=== PATIENT | female | born 1985 | race Caucasian/White ===

== ENCOUNTER 2018-08-15 23:45 | Emergency (ER) | payer OTHER ==
[2018-08-16] MEDS ORDERED: DIPH,PERTUS(ACELL)TETVAC-LF 0.5 ML VIAL IM ONE (03:10)
--- NOTE | 2018-08-16 05:26 | ED ---
Psych HPI <Ray Larson P - Last Filed: 08/16/18 05:28> - General Source: patient Mode of arrival: ambulatory - History of Present Illness MD Complaint: suicidal ideation, feels depressed -: days(s) Associated Psychiatric Symptoms: depression, suicidal ideation History of same: Yes Quality: constant Improves With: none Worsens With: none <Narendra Morales - Last Filed: 08/16/18 07:37> - General Chief Complaint: Psychiatric Symptoms Stated Complaint: MENTAL HEALTH Time Seen by Provider: 08/16/18 00:55 - History of Present Illness Initial Comments: This patient is 32-year-old woman presenting to have psychiatric evaluation for depression, she also had some suicidal ideation and inflicted a laceration to her left forearm. She does not recall when her last tetanus shot was. (Narendra Morales) - Related Data Home Medications Medication Instructions Recorded Confirmed No Known Home Medications 08/16/18 08/16/18 Allergies Allergy/AdvReac Type Severity Reaction Status Date / Time No Known Allergies Allergy Verified 08/16/18 00:17 Review of Systems ROS Other: All systems not noted in ROS Statement are negative. <Ray Larson P - Last Filed: 08/16/18 05:28> ROS Other: All systems not noted in ROS Statement are negative. Constitutional: Denies: fever, chills Respiratory: Denies: cough, dyspnea Cardiovascular: Denies: chest pain, palpitations Gastrointestinal: Denies: abdominal pain, nausea, vomiting Musculoskeletal: Denies: back pain Skin: Denies: rash Neurological: Denies: headache, weakness, numbness, paresthesias Psychiatric: Reports: depression, suicidal thoughts. Denies: auditory hallucinations, visual hallucinations, homicidal thoughts Hematological/Lymphatic: Denies: easy bleeding <Narendra Morales - Last Filed: 08/16/18 07:37> ROS Statement: Those systems with pertinent positive or pertinent negative responses have been documented in the HPI. Past Medical History Additional Past Medical History / Comment(s): migraines History of Any Multi-Drug Resistant Organisms: None Reported Past Surgical History: Section Past Psychological History: Depression Smoking Status: Current every day smoker Past Alcohol Use History: None Reported Past Drug Use History: None Reported <Narendra Morales - Last Filed: 08/16/18 07:37> General Exam Limitations: no limitations General appearance: alert, in no apparent distress Head exam: Present: atraumatic, normocephalic Eye exam: Present: normal appearance Respiratory exam: Present: normal lung sounds bilaterally. Absent: respiratory distress, wheezes, rales, rhonchi, stridor Cardiovascular Exam: Present: regular rate, normal rhythm, normal heart sounds. Absent: systolic murmur, diastolic murmur, rubs, gallop GI/Abdominal exam: Present: soft. Absent: tenderness Extremities exam: Present: normal capillary refill, other (Approximately 3 cm laceration to the volar aspect left forearm. No injury to the deep tissues). Absent: tenderness Neurological exam: Present: alert, oriented X3. Absent: motor sensory deficit Skin exam: Present: warm, dry, normal color. Absent: intact (Laceration as above), rash <Narendra Morales - Last Filed: 08/16/18 07:37> Vital Signs 08/16/18 08/16/18 00:11 05:28 Temperature 97.9 F Pulse Rate 52 L 78 Respiratory 20 16 Rate Blood Pressure 103/69 92/55 O2 Sat by Pulse 96 98 Oximetry Procedures - Laceration Laceration #1 Consent Obtained: verbal consent Indication: laceration Site: other (Ventral forearm) Size (cm): 3 Description: linear Depth: simple, single layer Anesthetic Used: lidocaine 1% Anesthesia Technique: local infiltration Amount (mls): 1 Pre-repair: wound explored, irrigated extensively (With saline pressure irrigation) Type of Sutures: other (ethilon) Size of Sutures: 5-0 Number of Sutures: 6 Technique: simple, interrupted Patient Tolerated Procedure: well, no complications <Ray Larson - Last Filed: 08/16/18 05:28> Disposition <Ray Larson - Last Filed: 08/16/18 05:28> Is patient prescribed a controlled substance at d/c from ED?: No <Narendra Morales - Last Filed: 08/16/18 07:37> Clinical Impression: Mood disorder, Laceration Disposition: HOME SELF-CARE Condition: Good Instructions: Mood Disorders (ED) Referrals: Jada Dahl MD [Primary Care Provider] - 1-2 days
[2018-08-16 05:29] VITALS: PULSE 78
[2018-08-16 09:47] VITALS: BP 118/70; RESP 18; TEMP 98
== END 2018-08-16 09:15 | disposition home or self-care (01) ==
LOC: EC 23:45
DX: S51.812A Laceration without foreign body of left forearm, initial encounter (principal); F32.9 Major depressive disorder, single episode, unspecified; R45.851 Suicidal ideations; F17.200 Nicotine dependence, unspecified, uncomplicated; Z23 Encounter for immunization; X78.9XXA Intentional self-harm by unspecified sharp object, initial encounter
CPT/HCPCS: 12002; 90471; 90715; 99284

== ENCOUNTER → 2020-04-14 | Outpatient (CLI) | payer OTHER ==
--- NOTE | 2020-04-14 14:44 | CT ---
EXAMINATION TYPE: CT abdomen pelvis w con DATE OF EXAM: 04/14/2020 COMPARISON: None HISTORY: Weight loss CT DLP: 594 mGycm CONTRAST: CT scan of the abdomen and pelvis is performed with Oral Contrast and with IV Contrast, patient injec talon with 100 mL of Isovue 300. FINDINGS: LUNG BASES-: No visible nodule. No infiltrate. LIVER/GB: Small gallstones identified. No space occupying hepatic lesion. Biliary tree is of kaitlynn l caliber. PANCREAS: No inflammation. No distinct mass. SPLEEN: No splenic enlargement. No lesion seen. ADRENALS: No nodule. No thickening. KIDNEYS/BLADDER: No hydronephrosis. No nephrolithiasis. No distinct renal mass. Urinary bladder g rossly unremarkable. BOWEL: Normal appendix. Normal bowel caliber. No inflammation. Moderate fecal stasis noted. GENITAL ORGANS: Right ovarian cyst measuring 1.5 cm. LYMPH NODES: No greater than 1cm abdominal or pelvic lymph nodes are appreciated. AORTA: No significant abnormality. OSSEOUS STRUCTURES: No significant abnormality is seen. OTHER: No significant additional abnormality is seen. IMPRESSION: 1. No significant abnormality to account for the patient's symptoms. Moderate fecal stasis identified . Small gallstones noted. Right ovarian cyst.
--- NOTE | 2020-04-15 04:05 | CT ---
EXAMINATION TYPE: CT cervical spine wo con DATE OF EXAM: 04/14/2020 COMPARISON: None HISTORY: 34-year-old female Bronchitis, not specified as acute or chronic, weight loss. TECHNIQUE: Contiguous axial scanning of the cervical spine without IV contrast. Coronal and sagittal reconstructions performed. CT DLP: 314 mGycm Automated exposure control for dose reduction was used. FINDINGS: No craniocervical junction abnormality, predental space widening, or prevertebral soft tissue swellin g. Alignment of the cervical spine is maintained though there is straightening of the normal cervical lo rdosis. Minimal posterior disc bulge at C5-C6. By CT, no evident spinal canal stenosis. No neuroforaminal stenosis is seen. Mild emphysematous change in the visualized upper lungs. IMPRESSION: 1. MINIMAL POSTERIOR DISC BULGE AT C5-C6. 2. STRAIGHTENING OF THE NORMAL CERVICAL LORDOSIS COULD BE POSITIONAL OR DUE TO MUSCLE SPASM. 3. COPD WITH MILD EMPHYSEMA IN THE UPPER LUNGS.
== END | disposition home or self-care (01) ==
LOC: RADCTMAIN 12:12
PROVIDERS: ATTEND Family Medicine
DX: K80.20 Calculus of gallbladder without cholecystitis without obstruction (principal); N83.201 Unspecified ovarian cyst, right side; M50.222 Other cervical disc displacement at C5-C6 level; J43.9 Emphysema, unspecified; R63.4 Abnormal weight loss; F10.20 Alcohol dependence, uncomplicated; R63.0 Anorexia
CPT/HCPCS: 72125; 74177; Q9967

== ENCOUNTER → 2020-05-13 | Outpatient (CLI) | payer OTHER ==
--- NOTE | 2020-05-13 07:56 | CT ---
EXAMINATION TYPE: CT chest wo con DATE OF EXAM: 05/13/2020 COMPARISON: Cough, bronchitis HISTORY: Bronchitis, weight loss CT DLP: 112.3 mGycm. Automated Exposure Control for Dose Reduction was Utilized. TECHNIQUE: CT scan of the thorax is performed without IV contrast. FINDINGS: LUNGS: The lungs are grossly clear. There are 3 mm nodules in the right apex. Within the superior s egment of the right lower lobe there are additional 3 mm less pulmonary nodules. There are well-circu mscribed. Diffuse emphysematous changes are seen compatible with chronic obstructive pulmonary diseas e. Vague subsegmental areas of consolidation are most typical of atelectasis. There is no pleural eff usion or pneumothorax seen. The tracheobronchial tree is patent. MEDIASTINUM: Lack of IV contrast is noted to limit evaluation for mediastinal and especially hilar ad enopathy. There are no definitive greater than 1 cm hilar or mediastinal lymph nodes. No cardiomega ly or pericardial effusion is seen. OTHER: Correlate for cholelithiasis. Mild hypertrophic change of the vertebral column. Calcification involving the right kidney measures 1 mm with no hydronephrosis. IMPRESSION: 1. No evidence of consolidative pneumonia. Subsegmental groundglass changes are most typical of atele ctasis. 2. There are multiple small less than 5 mm pulmonary nodules right apex too small to characterize. 6 month follow-up is recommended to confirm stability. 3. COPD
== END | disposition home or self-care (01) ==
LOC: RADCTMAIN 06:42
PROVIDERS: ATTEND Family Medicine
DX: J98.11 Atelectasis (principal); R91.8 Other nonspecific abnormal finding of lung field; J44.9 Chronic obstructive pulmonary disease, unspecified; R63.4 Abnormal weight loss
CPT/HCPCS: 71250

== ENCOUNTER 2020-07-10 18:40 | Emergency (ER) | payer OTHER ==
[2020-07-10 18:45] VITALS: RESP 16
[2020-07-10] MEDS ORDERED: SODIUM CHLORIDE 0.9% 1,000 ML IV ONE (19:20)
[2020-07-10 19:52] LABS: ALT 22 U/L (4-34); AST 65 U/L (14-36); African American GFR (CKD) >90 (>60 ml/min/1.73 sqM); Albumin 4.3 g/dL (3.5-5.0); Alkaline Phosphatase 72 U/L (38-126); Anion Gap 7 mmol/L; Blood Urea Nitrogen 6 mg/dL (7-17); Calcium 9.3 mg/dL (8.4-10.2); Carbon Dioxide 24 mmol/L (22-30); Chloride 107 mmol/L (98-107); Glucose 86 mg/dL (74-99); Non-African American GFR(CKD) >90 (>60 ml/min/1.73 sqM); Sodium 138 mmol/L (137-145); Total Protein 8.8 g/dL (6.3-8.2)
[2020-07-10 19:58] LABS: HCT 36.4 % (34.0-46.0); HGB 11.5 gm/dL (11.4-16.0); Hypochromasia Slight; MCH 30.7 pg (25.0-35.0); MCHC 31.5 g/dL (31.0-37.0); MCV 97.5 fL (80.0-100.0); Mean Platelet Volume 7.5; Potassium 5.4 mmol/L (3.5-5.1); RBC 3.73 m/uL (3.80-5.40); RDW 14.2 % (11.5-15.5); WBC 6.8 k/uL (3.8-10.6)
[2020-07-10 20:09] LABS: HCG,Quantitative Serum 1013.2 mIU/mL
--- NOTE | 2020-07-10 20:27 | US ---
EXAMINATION TYPE: Transabdominal DATE OF EXAM: 07/10/2020 8:13 PM COMPARISON: NONE CLINICAL HISTORY: pain. Pt states light vaginal bleeding EXAM PERFORMED: Transabdominal (TA) EXAM MEASUREMENTS: GESTATIONAL AGE / DATING Physician Established: Not yet established Dates by LMP: (11 weeks/2 days) EDC: 01/27/2021 Dates by First Scan: No prior Dates by Current Scan for: No IUP seen at this time MATERNAL ANATOMY Uterus: 8.6 x 4.0 x 6.6 cm Right Ovary: 2.2 x 2.3 x 1.4 cm Left Ovary: 2.6 x 2.5 x 1.7 cm Post CDS / Adnexa: wnl, prominent vessels within adnexa and posterior cul de sac Presence of free fluid: No Presence of corpus luteal cyst: No GESTATION / SURVEY IUP: No IUP seen at this time, Endo thickened and heterogeneous= 2.3 cm with some increased vascular ity suggesting incomplete Date of LMP: 04/22/2020 Beta HcG (if available): Not available at this time IMPRESSION: There is mixed complex density in the endometrial cavity consistent with proximal of conception and i ncomplete .
[2020-07-10 20:29] LABS: Appearance,Urine Clear (Clear); Bacteria,Urine Rare /hpf; Bilirubin,Urine Negative (Negative); Blood,Urine Small (Negative); Color,Urine Light Yellow; Glucose,Urine (UA) Negative (Negative); Ketones,Urine Negative (Negative); Leukocyte Esterase,Urine Moderate (Negative); Nitrite,Urine Negative (Negative); PH, Urine 6.5 (5.0-8.0); Protein,Urine Negative (Negative); RBC,Urine 2 /hpf (0-5); Specific Gravity,Urine 1.003 (1.001-1.035); Squamous Epithelial Cell,Urine 4 /hpf (0-4); Urobilinogen,Urine <2.0 mg/dL (<2.0); WBC,Urine 25 /hpf (0-5)
[2020-07-10 20:43] LABS: Eosinophils # (M) 0.34 k/uL (0-0.7); Lymphocytes # (M) 2.04 k/uL (1.0-4.8); Monocytes # (M) 0.41 k/uL (0-1.0); Neutrophils # (M) 4.01 k/uL (1.3-7.7); Neutrophils % (M) 59 %; Nucleated Red Blood Cells 0 /100 WBC (0-0); Total Cells Counted 100
[2020-07-10 20:44] LABS: Platelet Count 346 k/uL (150-450)
--- NOTE | 2020-07-10 21:28 | ED ---
General Adult HPI - General Chief complaint: Vaginal Bleeding Stated complaint: 10 WEEKS PREG/VAG BLEEDING Time Seen by Provider: 07/10/20 19:20 Source: patient, RN notes reviewed Mode of arrival: ambulatory Limitations: no limitations - History of Present Illness Initial comments: Patient is a 34-year-old female currently presenting to the emergency room for vaginal bleeding. Patient reports that she has had some vaginal bleeding throughout the day. Patient is currently 10 weeks . Patient did have a confirmed intrauterine about 6 weeks ago. Patient was able to show me the picture of this ultrasound. Patient states only light bleeding. Denies any abdominal pain. Patient sees an BANK ACCOUNTANT through [facility].Patient has no other complaints at this time including shortness of breath, chest pain, abdominal pain, nausea or vomiting, headache, or visual changes. - Related Data Home Medications Medication Instructions Recorded Confirmed No Known Home Medications 08/16/18 08/16/18 Allergies Allergy/AdvReac Type Severity Reaction Status Date / Time morphine Allergy Rash/Hives Verified 07/10/20 18:42 Review of Systems ROS Statement: Those systems with pertinent positive or pertinent negative responses have been documented in the HPI. ROS Other: All systems not noted in ROS Statement are negative. Past Medical History Additional Past Medical History / Comment(s): migraines History of Any Multi-Drug Resistant Organisms: None Reported Past Surgical History: Section Additional Past Surgical History / Comment(s): D&C Past Psychological History: Depression Smoking Status: Current every day smoker Past Alcohol Use History: None Reported Past Drug Use History: None Reported General Exam Limitations: no limitations General appearance: alert, in no apparent distress Head exam: Present: atraumatic, normocephalic, normal inspection Eye exam: Present: normal appearance, PERRL, EOMI. Absent: scleral icterus, conjunctival injection, periorbital swelling ENT exam: Present: normal exam, mucous membranes moist Neck exam: Present: normal inspection, full ROM. Absent: tenderness, meningismus, lymphadenopathy Respiratory exam: Present: normal lung sounds bilaterally. Absent: respiratory distress, wheezes, rales, rhonchi, stridor Cardiovascular Exam: Present: regular rate, normal rhythm, normal heart sounds. Absent: systolic murmur, diastolic murmur, rubs, gallop, clicks GI/Abdominal exam: Present: soft, normal bowel sounds. Absent: distended, tenderness, guarding, rebound, rigid External exam: Absent: other (Patient refused pelvic exam.) Course Vital Signs 07/10/20 07/10/20 18:42 21:00 Temperature 97.5 F L 98.0 F Pulse Rate 72 85 Respiratory 16 16 Rate Blood Pressure 103/67 110/75 O2 Sat by Pulse 100 98 Oximetry Medical Decision Making - Medical Decision Making Vitals are stable. CBC is unremarkable. Potassium is hemolyzed at 5.4. U rinalysis does show 25 white blood cells however patient denies any dysuria or suprapubic pain. Blood type is O+. Patient refused pelvic exam. Ultrasound was performed which showed mixed Density in the endometrial cavity consistent with products of conception and incomplete . Patient is very upset and is requesting immediate discharge. I did report that she needs to follow up with her BANK ACCOUNTANT on Monday and she is agreeable to this. I did also recommend that she repeat her hCG on Monday, prescription is given.. Urine culture is pending.I discussed this case with attending Dr. Arriaga who agrees with this assessment and treatment plan. - Lab Data Result diagrams: 07/10/20 19:36 07/10/20 19:36 Lab Results 07/10/20 07/10/20 07/10/20 Range/Units 19:36 19:36 19:36 WBC 6.8 (3.8-10.6) k/uL RBC 3.73 L (3.80-5.40) m/uL Hgb 11.5 (11.4-16.0) gm/dL Hct 36.4 (34.0-46.0) % MCV 97.5 (80.0-100.0) fL MCH 30.7 (25.0-35.0) pg MCHC 31.5 (31.0-37.0) g/dL RDW 14.2 (11.5-15.5) % Plt Count 346 (150-450) k/uL Neutrophils % Not Reportable Neutrophils % (Manual) 59 % Lymphocytes % Not Reportable Lymphocytes % (Manual) 30 % Monocytes % Not Reportable Monocytes % (Manual) 6 % Eosinophils % Not Reportable Eosinophils % (Manual) 5 % Basophils % Not Reportable Neutrophils # Not Reportable Neutrophils # (Manual) 4.01 (1.3-7.7) k/uL Lymphocytes # Not Reportable Lymphocytes # (Manual) 2.04 (1.0-4.8) k/uL Monocytes # Not Reportable Monocytes # (Manual) 0.41 (0-1.0) k/uL Eosinophils # Not Reportable Eosinophils # (Manual) 0.34 (0-0.7) k/uL Basophils # Not Reportable Nucleated RBCs 0 (0-0) /100 WBC Manual Slide Review Performed Hypochromasia Slight Sodium 138 (137-145) mmol/L Potassium 5.4 H (3.5-5.1) mmol/L Chloride 107 (98-107) mmol/L Carbon Dioxide 24 (22-30) mmol/L Anion Gap 7 mmol/L BUN 6 L (7-17) mg/dL Creatinine 0.42 L (0.52-1.04) mg/dL Est GFR (CKD-EPI)AfAm >90 (>60 ml/min/1.73 sqM) Est GFR (CKD-EPI)NonAf >90 (>60 ml/min/1.73 sqM) Glucose 86 (74-99) mg/dL Calcium 9.3 (8.4-10.2) mg/dL Total Bilirubin 1.0 (0.2-1.3) mg/dL AST 65 H (14-36) U/L ALT 22 (4-34) U/L Alkaline Phosphatase 72 (38-126) U/L Total Protein 8.8 H (6.3-8.2) g/dL Albumin 4.3 (3.5-5.0) g/dL HCG, Quant 1013.2 mIU/mL Urine Color Urine Appearance (Clear) Urine pH (5.0-8.0) Ur Specific [place] (1.001-1.035) Urine Protein (Negative) Urine Glucose (UA) (Negative) Urine Ketones (Negative) Urine Blood (Negative) Urine Nitrite (Negative) Urine Bilirubin (Negative) Urine Urobilinogen (<2.0) mg/dL Ur Leukocyte Esterase (Negative) Urine RBC (0-5) /hpf Urine WBC (0-5) /hpf Ur Squamous Epith Cells (0-4) /hpf Urine Bacteria (None) /hpf Blood Type O Positive Blood Type Recheck No Previous Record Bld Type Recheck Status [facility] ONLY 07/10/20 Range/Units 19:45 WBC (3.8-10.6) k/uL RBC (3.80-5.40) m/uL Hgb (11.4-16.0) gm/dL Hct (34.0-46.0) % MCV (80.0-100.0) fL MCH (25.0-35.0) pg MCHC (31.0-37.0) g/dL RDW (11.5-15.5) % Plt Count (150-450) k/uL Neutrophils % Neutrophils % (Manual) % Lymphocytes % Lymphocytes % (Manual) % Monocytes % Monocytes % (Manual) % Eosinophils % Eosinophils % (Manual) % Basophils % Neutrophils # Neutrophils # (Manual) (1.3-7.7) k/uL Lymphocytes # Lymphocytes # (Manual) (1.0-4.8) k/uL Monocytes # Monocytes # (Manual) (0-1.0) k/uL Eosinophils # Eosinophils # (Manual) (0-0.7) k/uL Basophils # Nucleated RBCs (0-0) /100 WBC Manual Slide Review Hypochromasia Sodium (137-145) mmol/L Potassium (3.5-5.1) mmol/L Chloride (98-107) mmol/L Carbon Dioxide (22-30) mmol/L Anion Gap mmol/L BUN (7-17) mg/dL Creatinine (0.52-1.04) mg/dL Est GFR (CKD-EPI)AfAm (>60 ml/min/1.73 sqM) Est GFR (CKD-EPI)NonAf (>60 ml/min/1.73 sqM) Glucose (74-99) mg/dL Calcium (8.4-10.2) mg/dL Total Bilirubin (0.2-1.3) mg/dL AST (14-36) U/L ALT (4-34) U/L Alkaline Phosphatase (38-126) U/L Total Protein (6.3-8.2) g/dL Albumin (3.5-5.0) g/dL HCG, Quant mIU/mL Urine Color Light Yellow Urine Appearance Clear (Clear) Urine pH 6.5 (5.0-8.0) Ur Specific [place] 1.003 (1.001-1.035) Urine Protein Negative (Negative) Urine Glucose (UA) Negative (Negative) Urine Ketones Negative (Negative) Urine Blood Small H (Negative) Urine Nitrite Negative (Negative) Urine Bilirubin Negative (Negative) Urine Urobilinogen <2.0 (<2.0) mg/dL Ur Leukocyte Esterase Moderate H (Negative) Urine RBC 2 (0-5) /hpf Urine WBC 25 H (0-5) /hpf Ur Squamous Epith Cells 4 (0-4) /hpf Urine Bacteria Rare H (None) /hpf Blood Type Blood Type Recheck Bld Type Recheck Status Disposition Clinical Impression: Miscarriage, Vaginal bleeding Disposition: HOME SELF-CARE Condition: Good Instructions (If sedation given, give patient instructions): Miscarriage (ED) Additional Instructions: repeat blood work on Monday. Follow-up with your BANK ACCOUNTANT by calling Monday for an appointment. If you have any worsening symptoms such as increased bleeding, abdominal pain, fevers he needs to return to the emergency room. Is patient prescribed a controlled substance at d/c from ED?: No Referrals: Moira Mix MD [Primary Care Provider] - 1-2 days Time of Disposition: 21:27
[2020-07-10 21:35] VITALS: BP 110/75; PULSE 85; TEMP 98
== END 2020-07-10 21:36 | disposition home or self-care (01) ==
LOC: EC 18:40
DX: O03.4 Incomplete spontaneous abortion without complication (principal); F17.200 Nicotine dependence, unspecified, uncomplicated; Z88.5 Allergy status to narcotic agent
CPT/HCPCS: 36415; 76801; 80053; 81001; 84702; 85025; 86900; 86901; 87086; 96360; 99284

== ENCOUNTER 2020-07-13 12:51 | Emergency (ER) | payer OTHER ==
[2020-07-13 13:08] VITALS: TEMP 98.7
[2020-07-13 14:18] LABS: Appearance,Urine Clear (Clear); Bilirubin,Urine Negative (Negative); Blood,Urine Large (Negative); Color,Urine Light Red; Glucose,Urine (UA) Negative (Negative); Ketones,Urine Negative (Negative); Leukocyte Esterase,Urine Moderate (Negative); Mucus,Urine Rare /hpf; Nitrite,Urine Negative (Negative); PH, Urine 6.5 (5.0-8.0); Protein,Urine Trace (Negative); RBC,Urine >182 /hpf (0-5); Specific Gravity,Urine 1.019 (1.001-1.035); Squamous Epithelial Cell,Urine 1 /hpf (0-4); Urobilinogen,Urine <2.0 mg/dL (<2.0); WBC,Urine 30 /hpf (0-5)
--- NOTE | 2020-07-13 14:45 | US ---
EXAMINATION TYPE: Transabdominal DATE OF EXAM: 07/13/2020 2:04 PM COMPARISON: Radius exam 07/10/2020 CLINICAL HISTORY: vaginal bleeding/miscarriage. spotting for 3 days, heavy bleeding today EXAM PERFORMED: Transabdominal (TA) EXAM MEASUREMENTS: GESTATIONAL AGE / DATING Physician Established: Not yet established Dates by LMP: (11 weeks/5 days) EDC: 01/27/21 Dates by First Scan: no IUP visualized on prior exam Dates by Current Scan for: No IUP seen at this time MATERNAL ANATOMY Uterus: 8.0 x 4.5 x 5.5cm Right Ovary: 2.0 x 1.1 x 2.2cm Left Ovary: 2.6 x 1.6 x 1.9cm Post CDS / Adnexa: prominent vessels noted Presence of free fluid: no Presence of corpus luteal cyst: no GESTATION / SURVEY IUP: No IUP seen at this time, thickened and heterogeneous endometrium = 2.6cm with increased vascul arity Date of LMP: 04/22/20 Beta HcG (if available): Not available at this time IMPRESSION: There is no intrauterine . Endometrial stripe is thickened and indeterminate, consider [employer] c onsult.
--- NOTE | 2020-07-13 14:47 | ED ---
Female Urogenital HPI - General Chief complaint: Vaginal Bleeding Stated complaint: recheck - 10wks preg bleeding Time Seen by Provider: 07/13/20 13:12 Source: patient, RN notes reviewed, old records reviewed Mode of arrival: ambulatory Limitations: no limitations - History of Present Illness Initial comments: This is a 34-year-old female DF for evaluation presents today for evaluation regards to vaginal bleeding 10 weeks of . Patient has no abdominal pain. Patient states her pain has been decreasing sent in from the ER for continued bleeding. Patient has no active bleeding here in the ER which she believes she may have passed tissue on arrival to the ER which she hasn't the bathroom. Otherwise besides being mildly emotional patient has no complaints MD Complaint: vaginal bleeding -: days(s) Location: suprapubic Radiation: non-radiating Severity: moderate Severity scale (1-10): 4 Consistency: constant Improves with: none Worsens with: none Patient : Yes (Active miscarriage) Associated Symptoms: vaginal bleeding - Related Data Sexually active: No Home Medications Medication Instructions Recorded Confirmed No Known Home Medications 08/16/18 08/16/18 Allergies Allergy/AdvReac Type Severity Reaction Status Date / Time morphine Allergy Rash/Hives Verified 07/13/20 13:08 Review of Systems ROS Statement: Those systems with pertinent positive or pertinent negative responses have been documented in the HPI. ROS Other: All systems not noted in ROS Statement are negative. Past Medical History Past Medical History: No Reported History Additional Past Medical History / Comment(s): migraines History of Any Multi-Drug Resistant Organisms: None Reported Past Surgical History: Section Additional Past Surgical History / Comment(s): D&C Past Psychological History: Depression Smoking Status: Current every day smoker Past Alcohol Use History: None Reported Past Drug Use History: None Reported General Exam Limitations: no limitations General appearance: alert, in no apparent distress, anxious Head exam: Present: atraumatic, normocephalic, normal inspection Eye exam: Present: normal appearance, PERRL, EOMI. Absent: scleral icterus, conjunctival injection, periorbital swelling ENT exam: Present: normal exam, mucous membranes moist Neck exam: Present: normal inspection. Absent: tenderness, meningismus, lymphadenopathy Respiratory exam: Present: normal lung sounds bilaterally. Absent: respiratory distress, wheezes, rales, rhonchi, stridor Cardiovascular Exam: Present: regular rate, normal rhythm, normal heart sounds. Absent: systolic murmur, diastolic murmur, rubs, gallop, clicks GI/Abdominal exam: Present: soft, normal bowel sounds. Absent: distended, tenderness, guarding, rebound, rigid Extremities exam: Present: normal inspection, full ROM, normal capillary refill. Absent: tenderness, pedal edema, joint swelling, calf tenderness Back exam: Present: normal inspection Neurological exam: Present: alert, oriented X3, CN II-XII intact Psychiatric exam: Present: normal affect, normal mood Skin exam: Present: warm, dry, intact, normal color. Absent: rash Course Vital Signs 07/13/20 07/13/20 13:05 14:53 Temperature 98.7 F Pulse Rate 95 85 Respiratory 18 16 Rate Blood Pressure 112/74 111/72 O2 Sat by Pulse 100 97 Oximetry - Reevaluation(s) Reevaluation #1: Medical record is reviewed Patient remained significantly symptomatic improved here in the ER Patient currently has no active bleeding Patient informed of findings and results, questions answered Patient feels good for discharge Medical Decision Making - Medical Decision Making 34 female DF for evaluation, patient has had miscarriage, natural , for the past. Patient will be discharged home - Lab Data Lab Results 07/13/20 07/13/20 Range/Units 13:31 13:31 HCG, Quant 469.6 mIU/mL Urine Color Light Red Urine Appearance Clear (Clear) Urine pH 6.5 (5.0-8.0) Ur Specific [place] 1.019 (1.001-1.035) Urine Protein Trace H (Negative) Urine Glucose (UA) Negative (Negative) Urine Ketones Negative (Negative) Urine Blood Large H (Negative) Urine Nitrite Negative (Negative) Urine Bilirubin Negative (Negative) Urine Urobilinogen <2.0 (<2.0) mg/dL Ur Leukocyte Esterase Moderate H (Negative) Urine RBC >182 H (0-5) /hpf Urine WBC 30 H (0-5) /hpf Ur Squamous Epith Cells 1 (0-4) /hpf Urine Mucus Rare H (None) /hpf - Radiology Data Radiology results: report reviewed (Ultrasound pelvis shows no acute disease, no retained products), image reviewed Disposition Clinical Impression: Miscarriage Disposition: HOME SELF-CARE Condition: Fair Instructions (If sedation given, give patient instructions): Miscarriage (ED) Is patient prescribed a controlled substance at d/c from ED?: No Referrals: Moira Mix MD [Primary Care Provider] - 1-2 days
[2020-07-13 14:54] VITALS: BP 111/72; PULSE 85; RESP 16
== END 2020-07-13 14:53 | disposition home or self-care (01) ==
LOC: EC 12:51
DX: O03.9 Complete or unspecified spontaneous abortion without complication (principal); F17.200 Nicotine dependence, unspecified, uncomplicated; Z88.5 Allergy status to narcotic agent
CPT/HCPCS: 36415; 76801; 81001; 84702; 87086; 99284

== ENCOUNTER 2020-09-08 16:56 | Emergency (ER) | payer OTHER ==
[2020-09-08 17:04] VITALS: TEMP 97
[2020-09-08 17:53] LABS: Appearance,Urine Turbid (Clear); Bacteria,Urine Many /hpf; Bilirubin,Urine Negative (Negative); Blood,Urine Large (Negative); Color,Urine Dark Yellow; Glucose,Urine (UA) Negative (Negative); Ketones,Urine Negative (Negative); Leukocyte Esterase,Urine Large (Negative); Mucus,Urine Many /hpf; Nitrite,Urine Positive (Negative); Protein,Urine 2+ (Negative); RBC,Urine >182 /hpf (0-5); Specific Gravity,Urine 1.019 (1.001-1.035); Urobilinogen,Urine <2.0 mg/dL (<2.0); WBC,Urine >182 /hpf (0-5)
[2020-09-08] MEDS ORDERED: cefTRIAXone 1,000 MG VIAL (IM USE) IM STA (17:56)
--- NOTE | 2020-09-08 18:01 | ED ---
Female Urogenital HPI - General Chief complaint: Urogenital Stated complaint: Back Pain Time Seen by Provider: 09/08/20 17:12 Source: patient Mode of arrival: ambulatory Limitations: no limitations - History of Present Illness Initial comments: Patient is a 34-year-old female presenting to emergency Department with complaints of a possible kidney infection. Patient states 2 days ago she started having urinary frequency, dysuria, some mild suprapubic pressure. Patient states today she started having some right flank pain and increase in her burning with urination. She denies any fever, chills, nausea, vomiting. He states she tried taking Azo at home without improvement of symptoms. She denies being this time as she is currently on her menstrual cycle. She has no further complaints at this time. Arrival to the ER, her vital signs are stable. - Related Data Previous Rx's Medication Instructions Recorded Cephalexin [Keflex] 500 mg PO BID 10 Days #20 cap 09/08/20 Allergies Allergy/AdvReac Type Severity Reaction Status Date / Time morphine Allergy Rash/Hives Verified 09/08/20 17:58 Review of Systems ROS Statement: Those systems with pertinent positive or pertinent negative responses have been documented in the HPI. ROS Other: All systems not noted in ROS Statement are negative. Past Medical History Past Medical History: No Reported History Additional Past Medical History / Comment(s): migraines History of Any Multi-Drug Resistant Organisms: None Reported Past Surgical History: Section Additional Past Surgical History / Comment(s): D&C Past Psychological History: Depression Smoking Status: Current every day smoker Past Alcohol Use History: None Reported Past Drug Use History: None Reported General Exam - General Exam Comments Initial Comments: GENERAL: Patient is well-developed and well-nourished. Patient is nontoxic and in no acute distress. HEAD: Atraumatic, normocephalic. EYES: Pupils equal round and reactive to light, extraocular movements intact, sclera anicteric, conjunctiva are normal. Eyelids were unremarkable. ENT: TMs normal, nares patent, oropharynx clear without exudates. Moist mucous membranes. NECK: Normal range of motion, supple without lymphadenopathy or JVD. LUNGS: Unlabored respirations. Breath sounds clear to auscultation bilaterally and equal. No wheezes rales or rhonchi. HEART: Regular rate and rhythm without murmurs, rubs or gallops. ABDOMEN: Mild suprapubic discomfort on palpation. No other areas of pain. Soft, normoactive bowel sounds. No guarding, no rebound. No masses appreciated. No flank pain. : Deferred MUSCULOSKELETAL: Normal extremities with adequate strength and normal range of motion, no pitting or edema. No clubbing or cyanosis. NEUROLOGICAL: Patient is alert and oriented x 3. Motor and sensory are also intact. Normal speech, normal gait. PSYCH: Normal mood, normal affect. SKIN: Warm, Dry, normal turgor, no rashes or lesions noted. Limitations: no limitations Course Vital Signs 09/08/20 09/08/20 17:02 18:11 Temperature 97 F L Pulse Rate 104 H 89 Respiratory 18 16 Rate Blood Pressure 107/60 132/74 O2 Sat by Pulse 99 99 Oximetry Medical Decision Making - Medical Decision Making Patient is a 34-year-old female here for dysuria, frequency, right flank pain that started 2 days ago. No fevers, chills are stable. She does have some very mild suprapubic discomfort on palpation. Her urine shows evidence of a significant UTI, positive nitrates. Urine hCG is negative. I will give her 1 g or Rocephin today and start her on Keflex. Patient is stable for discharge. Strict return parameters were discussed with the patient she verbalized unde rstanding. - Lab Data Lab Results 09/08/20 09/08/20 Range/Units 17:38 17:38 Urine Color Dark Yellow Urine Appearance Turbid H (Clear) Urine pH 6.0 (5.0-8.0) Ur Specific [place] 1.019 (1.001-1.035) Urine Protein 2+ H (Negative) Urine Glucose (UA) Negative (Negative) Urine Ketones Negative (Negative) Urine Blood Large H (Negative) Urine Nitrite Positive H (Negative) Urine Bilirubin Negative (Negative) Urine Urobilinogen <2.0 (<2.0) mg/dL Ur Leukocyte Esterase Large H (Negative) Urine RBC >182 H (0-5) /hpf Urine WBC >182 H (0-5) /hpf Urine WBC Clumps Many H (None) /hpf Urine Bacteria Many H (None) /hpf Urine Mucus Many H (None) /hpf Urine HCG, Qual Not Detected (Not Detectd) Disposition Clinical Impression: Urinary tract infection Disposition: HOME SELF-CARE Instructions (If sedation given, give patient instructions): Urinary Tract Infection in Women (ED) Additional Instructions: Please return to the Emergency Department if symptoms worsen or any other concerns. It is important to take antibiotics as prescribed, finish entire course. May take Tylenol or ibuprofen for discomfort. Follow up with your PCP. Prescriptions: Cephalexin [Keflex] 500 mg PO BID 10 Days #20 cap Is patient prescribed a controlled substance at d/c from ED?: No Referrals: Moira Mix MD [Primary Care Provider] - 1-2 days
[2020-09-08 18:13] VITALS: BP 132/74; PULSE 89; RESP 16
== END 2020-09-08 18:10 | disposition home or self-care (01) ==
LOC: EC 16:56
DX: N39.0 Urinary tract infection, site not specified (principal); F17.200 Nicotine dependence, unspecified, uncomplicated; Z88.5 Allergy status to narcotic agent
CPT/HCPCS: 99283; 96372; 81001; 81025; 87086; J0696

== ENCOUNTER → 2020-11-25 | Outpatient (CLI) | payer OTHER ==
--- NOTE | 2020-11-25 08:48 | CT ---
EXAMINATION TYPE: CT chest wo con DATE OF EXAM: 11/25/2020 COMPARISON: 05/13/2020 HISTORY: Pulmonary nodule CT DLP: 136.[address] of the chest was performed with lung and mediastinal window settings submitted. The la ck of contrast limits evaluation of the vascular, mediastinal and parenchymal structures including th e upper abdomen. LUNGS: Again noted are diffuse emphysematous changes. 3 mm right apical pulmonary nodules persist unc hanged. Additional pulmonary nodularity right upper lobe also measuring 3 mm image 20 of 60. Stable r ight lower lobe superior segment pulmonary nodule image 23 4 mm. 2 mm peripheral nodular density righ t lower lobe image 28 is also unchanged. 3 mm pulmonary nodular densities left upper lobe image 2260 unchanged. No new pulmonary nodules are seen. New finding of scattered groundglass infiltrates bilate rally may reflect active inflammatory process or developing pneumonia. Correlate clinically. MEDIASTINUM/KARLEE: Thoracic aorta is of normal caliber with limited evaluation given lack of contrast . The heart is not enlarged. No evidence for mediastinal mass. No lymph nodes greater than 1cm. UPPER ABDOMEN: No significant abnormality is seen. OTHER: No significant other abnormality. IMPRESSION: 1. Stable scattered pulmonary nodules as discussed above. Stability over a two-year timeframe should be documented radiographically. 2. New finding of scattered groundglass infiltrates. Correlate for developing pneumonia.
== END | disposition home or self-care (01) ==
LOC: RADCTMAIN 07:12
PROVIDERS: ATTEND Family Medicine
DX: R91.8 Other nonspecific abnormal finding of lung field (principal); J44.9 Chronic obstructive pulmonary disease, unspecified
CPT/HCPCS: 71250

== ENCOUNTER → 2021-03-18 | Outpatient (CLI) | payer OTHER ==
--- NOTE | 2021-03-18 13:25 | US ---
EXAMINATION TYPE: US venous doppler duplex LE RT DATE OF EXAM: 03/18/2021 12:23 PM COMPARISON: NONE CLINICAL HISTORY: R22.41 Localized swelling, mass and lump, right lo. SIDE PERFORMED: Right TECHNIQUE: The lower extremity deep venous system is examined utilizing real time linear array sonog isis with graded compression, doppler sonography and color-flow sonography. VESSELS IMAGED: Common Femoral Vein Deep Femoral Vein Greater Saphenous Vein * Femoral Vein Popliteal Vein Small Saphenous Vein * Proximal Calf Veins (* superficial vessels) Right Leg: Negative for DVT Fluid collection within the right popliteal fossa suggestive of a Henderson cyst measuring 4.4 x 1.4 x 2. 7 cm. IMPRESSION: 1. No deep venous thrombosis in the right lower extremity. 2. Right Henderson's cyst measuring 4.4 x 1.4 cm x 2.7 cm
== END | disposition home or self-care (01) ==
LOC: RADUSWWP 12:21
PROVIDERS: ATTEND Family Medicine
DX: M71.21 Synovial cyst of popliteal space [Baker], right knee (principal)

== ENCOUNTER → 2024-02-29 | Outpatient (CLI) | payer OTHER ==
--- NOTE | 2024-02-29 13:28 | CT ---
EXAMINATION TYPE: CT chest wo con DATE OF EXAM: 02/29/2024 COMPARISON: 11/25/2020 HISTORY: f/u pulmonary nodules. prior on pacs CT DLP: 286 mGycm. Automated Exposure Control for Dose Reduction was Utilized. TECHNIQUE: CT scan of the thorax is performed without IV contrast. FINDINGS: With exception of a table 3 mm nodule in the right lung apex, all the previously described nodules a nd groundglass densities have cleared in the interval presumably indicating resolution of a previousl y inflammatory process. No suspicious lung mass or nodule is seen. There are stable scattered subpleural blebs in the lung apices. There is no airspace consolidation or abnormal interstitial density. The great vessels chest are normal there's no mediastinal, hilar or axillary adenopathy. Limited scanning through the upper abdomen reveals no gross abnormality. No focal osseous lesions are seen.. IMPRESSION: 1. Resolution of the scattered groundglass opacities and pulmonary nodules with the exception of a st able 3 mm nodule in the right lung apex as described above. 2. No acute cardiopulmonary disease.
--- NOTE | 2024-03-01 09:33 | US ---
EXAMINATION TYPE: US thyroid st tissue head/neck DATE OF EXAM: 02/29/2024 COMPARISON: NONE CLINICAL INDICATION: Female, 38 years old with history of E04.1 THYROID NODULE; Thyroid nodule GLAND SIZE: Right Lobe: 5.2 x 1.2 x 1.6 cm Overall Parenchyma: homogeneous Left Lobe: 4.7 x 1.0 x 1.4 cm Overall Parenchyma: homogeneous Isthmus Thickness: 0.2 cm NODULES RIGHT: # of nodules measured on right: 0 LEFT: # of nodules measured on left: 0 ISTHMUS: # of nodules measured in the isthmus: 0 Bilateral neck scanned, no evidence of lymphadenopathy. IMPRESSION: 1. No thyromegaly. 2. No thyroid nodules. 2017 ACR TI-RADS LEVEL: 0 *Highest TI-RADS level nodule reported
== END | disposition home or self-care (01) ==
LOC: RADCTMAIN 11:49
PROVIDERS: ATTEND Family Medicine
DX: R91.8 Other nonspecific abnormal finding of lung field (principal); E04.1 Nontoxic single thyroid nodule
CPT/HCPCS: 71250; 76536